=== PATIENT | male | born 1980 | race Caucasian/White ===

== ENCOUNTER 2019-10-04 08:30 | Emergency (ER) | payer SELFPAY ==
[~2019-10-04] VITALS: Ht 177.8 cm; Wt 85.0 kg
[2019-10-04] MEDS ORDERED: IBUPROFEN 600MG TABLET PO ONE (09:30)
[2019-10-04 09:44] VITALS: BP 109/87
== END 2019-10-04 09:56 | disposition home or self-care (01) ==
LOC: ER 08:30
DX: M79.672 Pain in left foot (principal); M79.671 Pain in right foot
CPT/HCPCS: 99282